=== PATIENT | female | born 1935 | race Two or more races ===

== ENCOUNTER 2016-07-25 00:05 | Inpatient (IN) | payer MEDICARE, OTHER ==
[~2016-07-25] VITALS: Ht 160 cm; Wt 64.0 kg
[~2016-07-25 00:05] MED LIST: BENA10TA3 PO; CALC-317 PO; METF-314 PO; METO25TA5 PO; PIO30T PO; RALO60TA PO; SIMV10TA84 PO
[2016-07-25 00:50] LABS: Basophils # (auto) 0 uL; Basophils % (auto) 0.5 % (0.0-2.0); Eosinophils # (auto) 0.1 uL; Eosinophils % (auto) 0.9 % (0.0-7.0); Lymphocytes # (auto) 2.9 uL; Lymphocytes % (auto) 37.8 % (10.0-50.0); Mean Corpuscular Hemoglobin 28.8 pg (28.0-32.0); Mean Corpuscular Hgb Conc. 32.2 g/dL (32.0-36.0); Mean Corpuscular Volume 89.5 fL (80.0-100.0); Mean Platelet Volume 8.7 fL (7.4-10.4); Monocytes # (auto) 0.8 uL; Monocytes % (auto) 9.9 % (0.0-12.0); Neutrophils # (auto) 3.9 uL; Neutrophils % (auto) 50.9 % (37.0-80.0); Platelet Count (auto) 203 10^3/uL (140-450); Red Cell Distribution Width 16.8 % (11.6-16.0); White Blood Cell 7.7 10^3/uL (4.4-10.8)
[2016-07-25 01:08] LABS: Albumin 3.1 g/dL (3.4-5.0); Anion Gap 9 (5-15); Blood Urea Nitrogen 18 mg/dL (7-18); Calcium 9.2 mg/dL (8.5-10.1); Carbon Dioxide 25 mmol/L (21-32); Chloride 104 mmol/L (98-107); Glucose 146 mg/dL (74-106); Magnesium 1.7 mg/dL (1.6-2.6); Potassium 4.1 mmol/L (3.5-5.1); Sodium 138 mmol/L (136-145)
[2016-07-25 01:10] LABS: Aspartate Aminotransferase 27 U/L (15-37); BUN/Creatinine Ratio 14.8; GFR African American 54 mL/min; GFR Non-African American 45 mL/min
[2016-07-25 01:11] LABS: INR 1.06 (0.9-1.15); Partial Thromboplastin Time 30.1 sec (22.64-33.71); Prothrombin Time 11.4 sec (9.37-12.3)
[2016-07-25 01:15] LABS: Alkaline Phosphatase 57 U/L (45-117); Bilirubin, Total 0.4 mg/dL (0.2-1.0); Total Protein 6.7 g/dL (6.4-8.2)
[2016-07-25 01:20] LABS: Temperature: 21.4 C (20.0-25.0)
[2016-07-25 03:51] LABS: Urine Bilirubin Negative (Negative); Urine Blood Negative /uL (Negative); Urine Color Yellow (Yellow); Urine Glucose Normal (Normal); Urine Ketone Negative (Negative); Urine Nitrite Negative (Negative); Urine RBC 2 /hpf (0 - 4); Urine Squamous Epithelial Cell FEW /hpf (<5); Urine Urobilinogen Normal (Negative); Urine pH 7.5 (5.0-8.0)
[2016-07-25] MEDS ORDERED: TEMAZEPAM 15 MG CAP PO PRN (07:15)
[2016-07-25] MEDS ORDERED: ONDANSETRON HCL 4 MG/2 ML VIAL IV PRN (07:15)
[2016-07-25] MEDS ORDERED: HYDROcodone-ACET 5/325MG TAB PO PRN (07:15)
[2016-07-25] MEDS ORDERED: cloNIDine HCL 0.1 MG TAB PO PRN (07:15)
[2016-07-25] MEDS ORDERED: DEXTROSE (50%) 50ML SYRG IV PRN (07:15)
[2016-07-25] MEDS ORDERED: NITROGLYCERIN 0.4 MG SL TAB SL PRN (07:15)
[2016-07-25] MEDS ORDERED: ENOXAPARIN SOD 100 MG/1 ML SYRINGE SC ONE (07:15)
[2016-07-25] MEDS ORDERED: MORPHINE SULF INJ 2 MG/ML SYRINGE 1ML IV PRN ×2 (07:15)
[2016-07-25] MEDS: FAMOTIDINE 20 MG TAB PO SCH (09:52)
[2016-07-25] MEDS: amLODIPine BESYLATE 5 MG TAB PO SCH (09:52)
[2016-07-25] MEDS: ASPirin 81 mg TAB PO SCH (09:52)
[2016-07-25] MEDS: LEVOFLOXACIN 250MG 50 ML IV SCH (09:53)
[2016-07-25] MEDS ORDERED: FAMOTIDINE 20 MG TAB PO SCH (10:00)
[2016-07-25] MEDS: AMIODARONE HCL 200 MG TAB PO SCH (10:00)
[2016-07-25 10:37] VITALS: BP 179/68
[2016-07-25 11:13] VITALS: BP 179/68
[2016-07-25] MEDS: InsuLIN REG 1unit/0.01ml Soln (100units/ml) SC SCH ×3 (12:00→23:54)
[2016-07-25 13:00] VITALS: BP 175/58
[2016-07-25] MEDS: ACCU-CHEK COMFORT CURVE STRIP VI SCH ×3 (13:40→23:53)
[2016-07-25 17:00] VITALS: BP 176/64
[2016-07-25] MEDS ORDERED: WARFARIN SODIUM 10 MG TAB PO ONE (17:00)
[2016-07-25 20:00] VITALS: BP 154/59
[2016-07-25] MEDS ORDERED: LATA0.0015 OP (20:32)
[2016-07-25] MEDS ORDERED: DORZ2SOL15 EACHEYE (20:32)
[2016-07-25 22:00] VITALS: BP 154/59
[2016-07-25] MEDS ORDERED: ATORVASTATIN 20 MG TAB PO SCH (22:00)
[2016-07-26] VITALS (7 sets, daily range): BP systolic 131–164; BP diastolic 60–71
[2016-07-26 05:24] LABS: Basophils # (auto) 0 uL; Basophils % (auto) 0.5 % (0.0-2.0); Eosinophils # (auto) 0.1 uL; Eosinophils % (auto) 1.2 % (0.0-7.0); Hematocrit 30.4 % (36.0-46.0); Hemoglobin 9.8 g/dL (12.2-16.2); Lymphocytes # (auto) 2.5 uL; Lymphocytes % (auto) 36.3 % (10.0-50.0); Mean Corpuscular Hemoglobin 29.5 pg (28.0-32.0); Mean Corpuscular Hgb Conc. 32.3 g/dL (32.0-36.0); Mean Corpuscular Volume 91.1 fL (80.0-100.0); Mean Platelet Volume 9.3 fL (7.4-10.4); Monocytes # (auto) 0.7 uL; Monocytes % (auto) 10.2 % (0.0-12.0); Neutrophils # (auto) 3.5 uL; Neutrophils % (auto) 51.8 % (37.0-80.0); Platelet Count (auto) 234 10^3/uL (140-450); Red Cell Distribution Width 17.9 % (11.6-16.0); White Blood Cell 6.9 10^3/uL (4.4-10.8)
[2016-07-26] MEDS: ACCU-CHEK COMFORT CURVE STRIP VI SCH ×4 (05:31→21:26)
[2016-07-26] MEDS: InsuLIN REG 1unit/0.01ml Soln (100units/ml) SC SCH ×4 (05:31→21:26)
[2016-07-26 05:35] LABS: INR 1.11 (0.9-1.15); Partial Thromboplastin Time 30.3 sec (22.64-33.71)
[2016-07-26 05:44] LABS: Albumin 2.9 g/dL (3.4-5.0); BUN/Creatinine Ratio 13.5; Bilirubin, Total 0.4 mg/dL (0.2-1.0); Calcium 8.5 mg/dL (8.5-10.1); Magnesium 1.8 mg/dL (1.6-2.6); Potassium 3.5 mmol/L (3.5-5.1); Total Protein 6.3 g/dL (6.4-8.2)
[2016-07-26] MEDS: LEVOTHYROXINE SODIUM 100 MCG TAB PO SCH (06:08)
[2016-07-26] MEDS: LEVOFLOXACIN 250MG 50 ML IV SCH (09:20)
[2016-07-26] MEDS: ASPirin 81 mg TAB PO SCH (09:20)
[2016-07-26] MEDS: AMIODARONE HCL 200 MG TAB PO SCH (09:21)
[2016-07-26] MEDS: amLODIPine BESYLATE 5 MG TAB PO SCH (09:22)
[2016-07-26] MEDS: FAMOTIDINE 20 MG TAB PO SCH (09:22)
[2016-07-26] MEDS ORDERED: ENALAPRIL MALEATE 2.5 MG TAB PO ONE (11:30)
[2016-07-26] MEDS ORDERED: DEXTROSE (50%) 50ML SYRG IV PRN (11:30)
[2016-07-26] MEDS ORDERED: MAGNESIUM SULFATE 1GM/100ML 100 ML IV ONE (11:30)
[2016-07-26] MEDS ORDERED: amLODIPine BESYLATE 5 MG TAB PO ONE (11:45)
[2016-07-26] MEDS: SODIUM CHLORIDE 0.9% 1,000 ML IV SCH (12:02)
[2016-07-26] MEDS ORDERED: IOHEXOL 350 MG/ML 100ML IJ ONE (12:14)
[2016-07-26] MEDS ORDERED: WARFARIN SODIUM 2.5 MG TAB PO ONE (17:00)
[2016-07-26] MEDS: Boost Glucose Control 8 Ounces PO SCH (18:18)
[2016-07-26] MEDS: ATORVASTATIN 20 MG TAB PO SCH (21:27)
[2016-07-27] MEDS: ACETAMINOPHEN 325 MG TAB PO PRN (04:01)
[2016-07-27 05:00] VITALS: BP 148/83
[2016-07-27] MEDS: InsuLIN REG 1unit/0.01ml Soln (100units/ml) SC SCH ×4 (06:08→21:53)
[2016-07-27] MEDS: ACCU-CHEK COMFORT CURVE STRIP VI SCH ×4 (06:08→21:54)
[2016-07-27 06:20] LABS: Hematocrit 32.5 % (36.0-46.0); Hemoglobin 10.5 g/dL (12.2-16.2)
[2016-07-27] MEDS: LEVOTHYROXINE SODIUM 100 MCG TAB PO SCH (06:37)
[2016-07-27 06:38] LABS: Partial Thromboplastin Time 30.8 sec (22.64-33.71)
[2016-07-27 06:48] LABS: INR 1.3 (0.9-1.15)
[2016-07-27 06:49] LABS: Chloride 109 mmol/L (98-107); Potassium 3.4 mmol/L (3.5-5.1); Sodium 143 mmol/L (136-145)
[2016-07-27 06:54] LABS: Anion Gap 9 (5-15); BUN/Creatinine Ratio 12.6; Blood Urea Nitrogen 12 mg/dL (7-18); Calcium 8.4 mg/dL (8.5-10.1); Carbon Dioxide 25 mmol/L (21-32); GFR African American 72 mL/min; GFR Non-African American 60 mL/min; Glucose 144 mg/dL (74-106)
[2016-07-27] MEDS: Boost Glucose Control 8 Ounces PO SCH ×2 (07:39→17:30)
[2016-07-27] MEDS: SODIUM CHLORIDE 0.9% 1,000 ML IV SCH (07:39)
[2016-07-27 09:00] VITALS: BP 127/59
[2016-07-27] MEDS: amLODIPine BESYLATE 5 MG TAB PO SCH (10:00)
[2016-07-27] MEDS: LEVOFLOXACIN 250MG 50 ML IV SCH (10:01)
[2016-07-27] MEDS: ASPirin 81 mg TAB PO SCH (10:03)
[2016-07-27] MEDS: FAMOTIDINE 20 MG TAB PO SCH (10:03)
[2016-07-27] MEDS ORDERED: POTASSIUM CHL 20 Meq TABLET PO ONE (10:15)
[2016-07-27] MEDS: AMIODARONE HCL 200 MG TAB PO SCH (10:48)
[2016-07-27] MEDS: ENALAPRIL MALEATE 2.5 MG TAB PO SCH (10:50)
[2016-07-27 13:00] VITALS: BP 147/63
[2016-07-27 17:00] VITALS: BP 142/71
[2016-07-27] MEDS ORDERED: WARFARIN SODIUM 2.5 MG TAB PO ONE (17:00)
[2016-07-27] MEDS: ATORVASTATIN 20 MG TAB PO SCH (21:51)
[2016-07-27 22:00] VITALS: BP 173/79
[2016-07-28] MEDS: ACETAMINOPHEN 325 MG TAB PO PRN ×2 (00:05→22:04)
[2016-07-28 05:00] VITALS: BP 156/66
[2016-07-28 05:39] LABS: Partial Thromboplastin Time 32.7 sec (22.64-33.71)
[2016-07-28 05:42] LABS: Hemoglobin 10.3 g/dL (12.2-16.2)
[2016-07-28 05:52] LABS: INR 1.87 (0.9-1.15); Prothrombin Time 20.2 sec (9.37-12.3)
[2016-07-28 06:01] LABS: Potassium 3.8 mmol/L (3.5-5.1)
[2016-07-28 06:07] LABS: BUN/Creatinine Ratio 15.6; Calcium 8.3 mg/dL (8.5-10.1)
[2016-07-28] MEDS: LEVOTHYROXINE SODIUM 100 MCG TAB PO SCH (06:15)
[2016-07-28] MEDS: InsuLIN REG 1unit/0.01ml Soln (100units/ml) SC SCH ×4 (06:17→22:00)
[2016-07-28] MEDS: ACCU-CHEK COMFORT CURVE STRIP VI SCH ×4 (06:17→22:04)
[2016-07-28] MEDS: Boost Glucose Control 8 Ounces PO SCH ×2 (07:18→18:21)
[2016-07-28 09:00] VITALS: BP 164/67
[2016-07-28] MEDS: ASPirin 81 mg TAB PO SCH (10:00)
[2016-07-28] MEDS: LEVOFLOXACIN 250MG 50 ML IV SCH (10:00)
[2016-07-28] MEDS: FAMOTIDINE 20 MG TAB PO SCH (10:01)
[2016-07-28] MEDS: amLODIPine BESYLATE 5 MG TAB PO SCH (10:01)
[2016-07-28] MEDS: AMIODARONE HCL 200 MG TAB PO SCH (10:01)
[2016-07-28] MEDS: ENALAPRIL MALEATE 2.5 MG TAB PO SCH (10:02)
[2016-07-28 12:53] VITALS: BP 180/76
[2016-07-28] MEDS: LINEZOLID 600MG/300ML 300 ML IV SCH ×2 (13:38→22:03)
[2016-07-28] MEDS ORDERED: HCTZ 25 MG TAB PO ONE (14:00)
[2016-07-28 17:00] VITALS: BP 156/76
[2016-07-28] MEDS ORDERED: WARFARIN SODIUM 2 MG TAB PO ONE (17:00)
[2016-07-28 22:00] VITALS: BP 157/75
[2016-07-28] MEDS: ATORVASTATIN 20 MG TAB PO SCH (22:03)
[2016-07-29 05:00] VITALS: BP 137/79
[2016-07-29] MEDS: LEVOTHYROXINE SODIUM 100 MCG TAB PO SCH (06:27)
[2016-07-29] MEDS: ACCU-CHEK COMFORT CURVE STRIP VI SCH ×4 (06:28→22:09)
[2016-07-29] MEDS: InsuLIN REG 1unit/0.01ml Soln (100units/ml) SC SCH ×4 (06:29→22:00)
[2016-07-29 07:07] LABS: Partial Thromboplastin Time 35.5 sec (22.64-33.71)
[2016-07-29 07:18] LABS: INR 2.32 (0.9-1.15); Prothrombin Time 25.1 sec (9.37-12.3)
[2016-07-29] MEDS: Boost Glucose Control 8 Ounces PO SCH ×2 (07:41→17:25)
[2016-07-29 09:00] VITALS: BP 144/74
[2016-07-29] MEDS: LINEZOLID 600MG/300ML 300 ML IV SCH ×2 (10:16→22:09)
[2016-07-29] MEDS: ASPirin 81 mg TAB PO SCH (10:17)
[2016-07-29] MEDS: AMIODARONE HCL 200 MG TAB PO SCH (10:17)
[2016-07-29] MEDS: amLODIPine BESYLATE 5 MG TAB PO SCH (10:19)
[2016-07-29] MEDS: HCTZ 25 MG TAB PO SCH (10:19)
[2016-07-29] MEDS: FAMOTIDINE 20 MG TAB PO SCH (10:20)
[2016-07-29] MEDS: ENALAPRIL MALEATE 2.5 MG TAB PO SCH (10:20)
[2016-07-29 12:43] VITALS: BP 150/62
[2016-07-29 17:00] VITALS: BP 148/71
[2016-07-29] MEDS ORDERED: WARFARIN SODIUM 2 MG TAB PO ONE (17:00)
[2016-07-29 22:00] VITALS: BP 160/72
[2016-07-29] MEDS: ATORVASTATIN 20 MG TAB PO SCH (22:08)
[2016-07-29 23:00] VITALS: BP 136/75
[2016-07-30] VITALS (7 sets, daily range): BP systolic 124–155; BP diastolic 51–76
[2016-07-30 06:25] LABS: Partial Thromboplastin Time 35.4 sec (22.64-33.71)
[2016-07-30 06:33] LABS: Albumin 3.1 g/dL (3.4-5.0); BUN/Creatinine Ratio 10.8; Bilirubin, Total 0.4 mg/dL (0.2-1.0); Potassium 3.8 mmol/L (3.5-5.1)
[2016-07-30 06:42] LABS: INR 2.19 (0.9-1.15); Prothrombin Time 23.7 sec (9.37-12.3)
[2016-07-30] MEDS: LEVOTHYROXINE SODIUM 100 MCG TAB PO SCH (06:50)
[2016-07-30] MEDS: ACCU-CHEK COMFORT CURVE STRIP VI SCH ×2 (06:51→11:30)
[2016-07-30] MEDS: InsuLIN REG 1unit/0.01ml Soln (100units/ml) SC SCH ×2 (06:53→11:30)
[2016-07-30] MEDS ORDERED: LINEZOLID 600MG TABLET PO SCH (10:00)
[2016-07-30] MEDS: Boost Glucose Control 8 Ounces PO SCH (10:36)
[2016-07-30] MEDS: HCTZ 25 MG TAB PO SCH (10:37)
[2016-07-30] MEDS: amLODIPine BESYLATE 5 MG TAB PO SCH (10:39)
[2016-07-30] MEDS: ENALAPRIL MALEATE 2.5 MG TAB PO SCH (10:40)
[2016-07-30] MEDS: AMIODARONE HCL 200 MG TAB PO SCH (10:41)
[2016-07-30] MEDS: ASPirin 81 mg TAB PO SCH (10:42)
[2016-07-30] MEDS: FAMOTIDINE 20 MG TAB PO SCH (10:42)
[2016-07-30] MEDS ORDERED: WARF3TAB20 PO (13:41)
[2016-07-30] MEDS ORDERED: [UNRECOGNIZED DRUG - CODE] PO (13:46)
[2016-07-30] MEDS ORDERED: WARFARIN SODIUM 1 MG TAB PO ONE (17:00)
== END 2016-07-30 17:05 | disposition home or self-care (01) | DRG 291 ==
LOC: ER 00:05 → TELE 00:06 → TELE-E-ADS 09:24 → TELE-WESTW 10:37
PROVIDERS: ADMIT Nurse Practitioner; ATTEND Internal Medicine
DX: I13.0 Hypertensive heart and chronic kidney disease with heart failure and stage 1 through stage 4 chronic kidney disease, or unspecified chronic kidney disease (principal); I26.99 Other pulmonary embolism without acute cor pulmonale; I50.43 Acute on chronic combined systolic (congestive) and diastolic (congestive) heart failure; N39.0 Urinary tract infection, site not specified; I48.0 Paroxysmal atrial fibrillation; N18.9 Chronic kidney disease, unspecified; E78.5 Hyperlipidemia, unspecified; R07.89 Other chest pain; D63.8 Anemia in other chronic diseases classified elsewhere; I25.10 Atherosclerotic heart disease of native coronary artery without angina pectoris; E03.9 Hypothyroidism, unspecified; E11.22 Type 2 diabetes mellitus with diabetic chronic kidney disease; I70.0 Atherosclerosis of aorta; I25.5 Ischemic cardiomyopathy; B95.2 Enterococcus as the cause of diseases classified elsewhere; Z95.1 Presence of aortocoronary bypass graft; Z88.0 Allergy status to penicillin; Z82.49 Family history of ischemic heart disease and other diseases of the circulatory system; Z79.01 Long term (current) use of anticoagulants
CPT/HCPCS: 36415; 71010; 71275; 80048; 80053; 80061; 81001; 82962; 83036; 83735; 83880; 84443; 84484; 85014; 85018; 85025; 85379; 85610; 85730; 87086; 87088; 87186; 93005; 93306; 93970; J1815